=== PATIENT | female | born 1990 | race Caucasian/White ===

== ENCOUNTER 2020-10-25 13:56 | Outpatient (CLI) | payer BC, SELFPAY ==
--- NOTE | ~2020-10-25 | XR_ITS ---
XR chest 2V DATE: 10/25/2020 14:58 INDICATION: Chronic cough upon exertion TECHNIQUE: PA and lateral views COMPARISON: None FINDINGS: Small possible granuloma or focal nodular infiltrate in the right mid lung. The lungs other hernandez appear clear. No pleural effusion or pulmonary vascular congestion or pneumothorax. Heart size appears normal. No hilar or mediastinal enlargement. Included skeletal structures are unremarkable. IMPRESSION: Probable small nodule in the right mid lung versus minimal focal nodular infiltrate Reviewed, dictated and finalized at location B. IMPRESSION: Probable small nodule in the right mid lung versus minimal focal no dular infiltrate
--- NOTE | 2020-10-25 15:40 | WPDPFTINT ---
PFT Procedure Performed PFT Procedure Performed Spirometry with Pre/Post Bronchodilator Plethysmography (Lung Vol) Diffusing Cap (DLCO) Flow Vol Loop PFT Interpretation This is a pulmonary function test with pre and post-bronchodilator spirometry, plethysmography and diffusing capacity. The test was performed and results interpreted in accordance with the 2019 and 2005 ATS/ERS Task Force guidelines respectively using the Global Lung Function Initiative-2012 reference equations. Patient demonstrated good effort and cooperation. Reproducibility criteria were met. The quality of the pre bronchodilator spirometry maneuver was Grade A and post bronchodilator spirometry maneuver was Grade A. Findings: Spirometry: The contour the inspiratory expiratory flow tracing are normal. The pre bronchodilator FVC is 3.92 L, 93% predicted. the pre bronchodilator FEV1 is 3.25, 91% predicted. The FEV1: FVC ratio was 83%. The post bronchodilator FVC is 3.97 L, representing a 1% increase. The post bronchodilator FEV1 is 3.41 L, representing a 5% increase. Plethysmography: The total lung capacity is 5.12 L, 93% predicted. The functional residual capacity is 1.96, 65% predicted. The residual volume is 1.20 L, 81% predicted. Diffusing capacity: The absolute diffusion capacity is 23.7, 90% predicted. The diffusing capacity corrected for alveolar volume is 5.24, 109% predicted. Impression: The spirometry is normal without evidence of an obstructive abnormality. There is no significant improvement after inhaling a single dose of albuterol. There is a decreased functional residual capacity with a normal total lung capacity. This is an abnormal but nonspecific lung volume pattern. The diffusing capacity is normal. There are no prior studies for comparison
== END 2020-10-25 13:57 | disposition home or self-care (01) ==
PROVIDERS: PCP Internal Medicine; Visit Provider Nurse Practitioner
DX: R06.09 Other forms of dyspnea (principal); R91.8 Other nonspecific abnormal finding of lung field
CPT/HCPCS: 71046; 94060; 94726; 94729

== ENCOUNTER 2020-12-21 12:39 | Outpatient (CLI) | payer BC, SELFPAY ==
--- NOTE | 2020-12-22 16:51 | WPDMETH ---
Methacholine Procedure Perform Procedure Performed Methacholine Challenge Methacholine Challenge This is a methacholine challenge test. The test was performed and interpreted in accordance with the 1999 [place] [employer] guidelines. The test was performed with increasing doses of nebulized methacholine using a 2 minute tidal breathing protocol. The best post-methacholine FEV1 values were used to calculate the change from the post diluent FEV1. Findings: Baseline FEV1 3.25 L, 91% predicted. Post diluent FEV1 3.18 L Post 0.025 mg/ml methacholine FEV1 3.12 L, decreased 2% Post 0.25 mg/mL methacholine FEV1 3.17 L, decreased 0% Post 2.5 mg/mL methacholine FEV1 2.80 L, decreased 12% Post 10 mg/mL methacholine FEV1 2.28 L, decreased 28% Post albuterol nebulization FEV1 3.13 L Impression: The PC20 is 5.02 mg/ml which is categorized as borderline bronchial hyperresponsiveness. There are no prior methacholine challenge studies for comparison
== END 2020-12-21 12:40 | disposition home or self-care (01) ==
LOC: ANHPFT 12:41
PROVIDERS: PCP Internal Medicine; Visit Provider Nurse Practitioner
DX: J45.909 Unspecified asthma, uncomplicated (principal)
CPT/HCPCS: 94070; J7674